=== PATIENT | male | born 1955 | race Caucasian/White ===

== ENCOUNTER 2021-07-11 13:20 | Outpatient (CLI) | payer SELFPAY ==
--- NOTE | 2021-07-11 13:37 | XR_ITS ---
WS: [id number] RIGHT WRIST: 3 VIEW(S) TECHNIQUE: PA, oblique and lateral. HISTORY: PAIN IN RIGHT WRIST COMPARISON: None available. No acute fracture or dislocation. Moderate narrowing of the radial ulnar and radiocarpal joints. Small subchondral cystic changes are n oted involving the distal ulna and radius. Small hypertrophic osteophytes along the joint line of the wrist. There is also mild soft tissue edema. Slight elevation of the pronator quadratus tendon. No e rosions. No foreign body. 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 No fracture.
== END 2021-07-11 13:21 | disposition home or self-care (01) ==
PROVIDERS: Visit Provider Clinical Nurse Specialist Adult Health
DX: M25.531 Pain in right wrist (principal)
CPT/HCPCS: 73110

== ENCOUNTER 2021-10-01 10:37 | Outpatient (CLI) | payer MEDICARE, SELFPAY ==
[2021-10-01 10:52] VITALS: BMI 27.8
--- NOTE | 2021-10-01 10:52 | ECG_ITS ---
[facility] Test Date: 2021-10-01 Pat Name: Ranjeet Nicole Department: Room: Gender: Male [employer] Operator: : [id number] Requested By: Kirby Celaya Order Number: [id number] Gatica MD: Ruiz Tabares M.D. Interpretive Statements NAME OF STUDY: TREADMILL STRESS TEST INDICATION: [abnormal ekg, ] EXERCISE DATA: The patient was exercised by Leno protocol. Baseline heart rate was 77 beats per minute. Baseline blood pressure was 148/91 millimeters of mercury. Target heart rate was 131 beats per minute. Maximum heart rate achieved was 139, which was 105% of the target heart rate. Maximum blood pressure was 231/98 millimeters of mercury. Total exercise time was 6-minute. Maximum METs achieved was 7, maximum VO2 was 24.5. The reason for ending the test was completion of protocol. The patient complained of shortness of breath during the stress test, which then resolved at the end of the test. ELECTROCARDIOGRAM: BASELINE: Showed sinus rhythm, normal axis, no significant ST-T changes at the baseline noted. Frequent PVCs were noted [] EXERCISE: At the peak exercise level, [] No significant ST-T changes suggestive of ischemia noted. [] RECOVERY: During the recovery period, heart rate dropped appropriately. No significant ST-T changes in the recovery suggestive of ischemia noted. [] CONCLUSION: 1. Exercise capacity fair 2. Heart rate response was appropriate 3. Blood pressure response was hypertensive 4. Symptoms not suggestive of ischemia. 5. EKG stress test was not indicative of ischemia. Electronically Signed On 10-08-2021 11:02:17 [employer] by Ruiz Tabares M.[id number]
[2021-10-01 11:29] VITALS: BP 167/98; PULSE 90
== END 2021-10-01 10:38 | disposition home or self-care (01) ==
LOC: CDL 10:43
PROVIDERS: PCP Clinical Nurse Specialist Adult Health; Visit Provider Clinical Nurse Specialist Adult Health
DX: R94.31 Abnormal electrocardiogram [ECG] [EKG] (principal)
CPT/HCPCS: 93017

== ENCOUNTER → 2022-07-08 08:50 | Outpatient (BNVA) | payer MEDICARE, SELFPAY | PROVIDERS: PCP Clinical Nurse Specialist Adult Health; Visit Provider Clinical Nurse Specialist Adult Health | DX: R73.01 Impaired fasting glucose (principal); I10 Essential (primary) hypertension; E78.5 Hyperlipidemia, unspecified | CPT/HCPCS: 83036 ==

== ENCOUNTER → 2023-01-13 08:15 | Outpatient (BNVA) | payer MEDICARE, SELFPAY | PROVIDERS: PCP Clinical Nurse Specialist Adult Health; Visit Provider Clinical Nurse Specialist Adult Health | DX: I10 Essential (primary) hypertension (principal); E78.5 Hyperlipidemia, unspecified; R73.01 Impaired fasting glucose | CPT/HCPCS: 80053; 80061; 83036; 85025 ==

== ENCOUNTER → 2024-06-23 07:52 | Outpatient (BNVA) | payer MEDICARE, SELFPAY | PROVIDERS: PCP Clinical Nurse Specialist Adult Health; Visit Provider Clinical Nurse Specialist Adult Health | DX: I10 Essential (primary) hypertension (principal) | CPT/HCPCS: 80053 ==

== ENCOUNTER → 2024-06-24 13:37 | Outpatient (BNVA) | payer MEDICARE, SELFPAY | PROVIDERS: PCP Clinical Nurse Specialist Adult Health; Visit Provider Clinical Nurse Specialist Adult Health | DX: R73.01 Impaired fasting glucose (principal) | CPT/HCPCS: 83036 ==

== ENCOUNTER → 2024-07-01 10:14 | Outpatient (BNVA) | payer MEDICARE, SELFPAY | PROVIDERS: PCP Clinical Nurse Specialist Adult Health; Visit Provider Clinical Nurse Specialist Adult Health | DX: N18.32 Chronic kidney disease, stage 3b (principal) | CPT/HCPCS: 80048 ==

== ENCOUNTER → 2024-07-09 07:30 | Outpatient (BNVA) | payer MEDICARE, SELFPAY | PROVIDERS: PCP Clinical Nurse Specialist Adult Health; Visit Provider Clinical Nurse Specialist Adult Health | DX: N18.32 Chronic kidney disease, stage 3b (principal) | CPT/HCPCS: 80048 ==

== ENCOUNTER → 2024-07-22 08:23 | Outpatient (BNVA) | payer MEDICARE, SELFPAY | PROVIDERS: PCP Clinical Nurse Specialist Adult Health; Visit Provider Clinical Nurse Specialist Adult Health | DX: I10 Essential (primary) hypertension (principal); E78.2 Mixed hyperlipidemia; N18.32 Chronic kidney disease, stage 3b | CPT/HCPCS: 80048 ==